=== PATIENT | female | born 1940 | race African-American/Black ===

== ENCOUNTER 2018-09-16 00:50 | Emergency (ER) | payer MEDICARE ==
[~2018-09-16] VITALS: Ht 170.2 cm; Wt 84.1 kg
[~2018-09-16 00:50] MED LIST: ACETAMINOPHEN500 M1 PO; ATIVAN0.5 MG PO; ATIVAN2 MG/ML IV; CALCIUM 500 + D1 TAB PO; CLEOCIN HCL150 MG PO; CRANBERRY475 MG PO; FERROUS SULFAT325 MG PO; GLUCAGEN1 MG/VIAL IM; HYDROCODONE-APA1 TAB; MACROBID100 MG PO; MIRALAX17 GM PO; MYLANTA II SUSP30 ML PO; NORCO 7.5/325 T1 TA1 PO; PHENYTOIN100 MG/4 M PO; PRILOSEC20 MG PO; SENOKOT-S TABLE1 TAB PO
[2018-09-16] MEDS ORDERED: DILANTIN100 MG PO (01:05)
[2018-09-16] MEDS ORDERED: IMODIUM2 MG PO (01:05)
[2018-09-16] MEDS ORDERED: DULCOLAX5 MG PO (01:05)
[2018-09-16 02:16] LABS: ANION GAP 12.6 mmol/L (8-16); CALCIUM 7.9 mg/dL (8.5-10.1); CARBON DIOXIDE 26.1 mmol/L (21.0-32.0); CREATININE - SERUM 3.1 mg/dL (0.6-1.3); POTASSIUM - SERUM 4.7 mmol/L (3.5-5.1)
== END 2018-09-16 03:48 | disposition other institution (70) ==
LOC: D.ER 00:50
PROVIDERS: Family Medicine
DX: I12.9 Hypertensive chronic kidney disease with stage 1 through stage 4 chronic kidney disease, or unspecified chronic kidney disease (principal); N18.9 Chronic kidney disease, unspecified

== ENCOUNTER 2018-09-22 18:42 | Emergency (ER) | payer MEDICARE ==
[~2018-09-22] VITALS: Ht 170.2 cm; Wt 100.9 kg
[~2018-09-22 18:42] MED LIST changes: +DILANTIN100 MG PO; +DULCOLAX5 MG PO; +IMODIUM2 MG PO
[2018-09-22] MEDS ORDERED: VOLTAREN25 MG PO (23:01)
== END 2018-09-23 00:33 | disposition home or self-care (01) ==
LOC: D.ER 18:42
DX: M25.511 Pain in right shoulder (principal)